=== PATIENT | male | born 1965 | race Caucasian/White ===

== ENCOUNTER → 2018-03-05 08:19 | Outpatient (CLI) | payer OTHER, SELFPAY ==
[2018-03-05 09:13] LABS: Hemoglobin A1C% w Est Avg Glu 6.1 % (4.0-6.0)
[2018-03-05 09:28] LABS: BUN Creatinine Ratio 18.9 (6-22); Blood Urea Nitrogen 17 mg/dL (9-20); Calcium 9.3 mg/dL (8.4-10.2); Carbon Dioxide 29 mmol/L (22-32); Chloride 101 mmol/L (98-107); Cholesterol 170 mg/dL (140-199); Estimated Glomerular Filt Rate > 60.0 mL/min (>60); Glucose 121 mg/dL (70-100); HDL Cholesterol 27 mg/dL (40-60); HEMOLYSIS < 15 (0-50); LDL Cholesterol Calculated 114 mg/dL (<100); Potassium 4.5 mmol/L (3.4-5.1); Sodium 137 mmol/L (137-145); Triglycerides 143 mg/dL (35-150)
== END ==
PROVIDERS: Family Provider Family Medicine; PCP Family Medicine; Visit Provider Family Medicine
DX: E11.9 Type 2 diabetes mellitus without complications (principal)
CPT/HCPCS: 36415; 80048; 80061; 83036

== ENCOUNTER → 2019-07-05 11:05 | Outpatient (CLI) | payer OTHER, SELFPAY ==
--- NOTE | 2019-07-05 11:06 | DI.US.S_ITS ---
PROCEDURE: US PERIPH VENOUS LOW EXTREM RT INDICATIONS: R>L LE EDEMA, ONSET 2 WEEKS TECHNIQUE: Real-time imaging, as well as color and pulse Doppler interrogation, were performed of the lower extremity deep veins from the inguinal ligament to the popliteal fossa. COMPARISON: None. FINDINGS: The common femoral, femoral and popliteal veins are normally compressible, and free of intraluminal thrombus. Color and pulse Doppler demonstrate normal phasic intraluminal flow. There is normal augmentation response to distal compression maneuver. There are enlarged right inguinal lymph nodes including an enlarged node measuring up to 1.3 cm in short axis with a preserved fatty hilum. IMPRESSION: 1. No evidence of deep venous thrombosis in the right lower extremity. 2. Enlarged right inguinal lymph nodes with preserved fatty margarita are nonspecific but likely reactive. Recommend correlation clinically. Dictated by: Van Mullins M.D. on 07/05/2019 at 11:51 Approved by: Van Mullins M.D. on 07/05/2019 at 11:52
== END ==
PROVIDERS: PCP Family Medicine; Visit Provider Family Medicine
DX: R60.0 Localized edema (principal); R59.0 Localized enlarged lymph nodes
CPT/HCPCS: 93971

== ENCOUNTER → 2019-07-08 08:16 | Outpatient (CLI) | payer OTHER, SELFPAY ==
[2019-07-08 09:57] LABS: Alanine Aminotransferase 20 IU/L (<50); Albumin 4.2 g/dL (3.5-5.0); Albumin Globulin Ratio 1.4 (1.0-2.8); Alkaline Phosphatase 55 U/L (38-126); Aspartate Aminotransferase 22 IU/L (17-59); BUN Creatinine Ratio 18.9 (6-22); Bilirubin Total 0.5 mg/dL (0.2-1.3); Blood Urea Nitrogen 17 mg/dL (9-20); Calcium 9.5 mg/dL (8.4-10.2); Carbon Dioxide 30 mmol/L (22-32); Chloride 99 mmol/L (98-107); Cholesterol 159 mg/dL (140-199); Estimated Glomerular Filt Rate > 60.0 mL/min (>60); Globulin 2.9 g/dL (1.7-4.1); Glucose 125 mg/dL (70-100); HDL Cholesterol 22 mg/dL (40-60); HEMOLYSIS < 15 (0-50); Hemoglobin A1C% w Est Avg Glu 7.3 % (4.0-6.0); LDL Cholesterol Calculated 111 mg/dL (<100); Potassium 5.1 mmol/L (3.4-5.1); Sodium 136 mmol/L (137-145); Total Protein 7.1 g/dL (6.3-8.2); Triglycerides 131 mg/dL (35-150)
[2019-07-08 10:59] LABS: Creatinine Urine Random 91.8 mg/dL
[2019-07-08 11:04] LABS: Microalbumi Creatinin Ratio Ur 105.6 ug/mg CR (<30); Microalbumin Urine Random 9.7 mg/dL (0-1.6)
== END ==
PROVIDERS: PCP Family Medicine; Visit Provider Family Medicine
DX: I10 Essential (primary) hypertension (principal); E11.9 Type 2 diabetes mellitus without complications
CPT/HCPCS: 36415; 80053; 80061; 82043; 82570; 83036

== ENCOUNTER 2019-08-31 08:25 | Emergency (ER) | payer OTHER, SELFPAY ==
[2019-08-31 08:45] VITALS: BP 131/73; PULSE 56; RESP 18; TEMP 37.3; O2SAT 98; BMI 32.5
--- NOTE | 2019-08-31 09:21 | ED_ITS ---
HPI - Extremity Problem General Chief complaint: Extremity Problem,Nontraumatic Stated complaint: swollen,red,toe is split, right side Time Seen by Provider: 08/31/19 08:56 Source: patient Mode of arrival: Ambulatory History of Present Illness HPI Narrative: Patient is a 54-year-old diabetic male presenting with right toe infection. States it's been this way for the last 2 weeks however over the last 3 days he developed a blister in the arch of his foot he has had progressive redness and swelling. He has foul smell coming from his foot. MD Complaint: extremity swelling Onset (ago): week(s) (2) Pain Consistency: constant Location: right Related Data Home Medications Medication Instructions Recorded Confirmed metformin See Rx Instructions .ROUTE .COMPLEX 08/31/19 08/31/19 metoprolol tartrate 50 mg PO BID 08/31/19 08/31/19 Previous Rx's Medication Instructions Recorded lisinopril 40 mg tablet 40 mg PO DAILY #90 tab 07/04/19 atorvastatin 20 mg tablet 20 mg PO DAILY #90 tab 08/18/19 Allergies Allergy/AdvReac Type Severity Reaction Status Date / Time No Known Allergies Allergy Uncoded 08/18/19 14:17 Review of Systems Review of Systems ROS Unobtainable: All systems reviewed & are unremarkable except as noted in HPI and below Constitutional Constitutional: Denies chills, Denies fever(s), Denies lethargy and Denies weakness Eyes Eyes: Denies change in vision, Denies eye discharge, Denies irritation and Denies loss of vision Cardiovascular Cardiovascular: Denies dyspnea and Denies dyspnea on exertion Respiratory Respiratory: Denies cough, Denies dyspnea, Denies dyspnea on exertion and Denies wheezing Genitourinary Genitourinary: Denies hematuria, Denies flank pain, Denies urinary incontinence and Denies urinary urgency Musculoskeletal Musculoskeletal: Reports system reviewed and no additional complaints, except as docu Integumentary/Breasts Skin/Breast: Reports as per HPI Neurologic Neurologic: Denies loss of vision and Denies weakness Allergic/Immunologic Allergic/Immunologic: Denies wheezing Patient History Medical History No significant past medical history (Resolved 08/2016) Surgical History No history of previous surgery (Resolved 08/2016) Family History Father Brain cancer Grandmother Heart attack Grandmother Brain cancer Mother No problems noted. Social History marital status: pets and animals: Yes education level: high school occupational status: employed seatbelt use: always helmet use: Yes water heater temp set < 120 deg: No working smoke detector in home: Yes fire extinguisher in home: Yes carbon monox detector in home: No firearms in home: No Smoking Status: Current every day smoker alcohol intake: current during the past year weight has: decreased > 10 lbs well-balanced diet: about half the time daily servings fruits/ve-1 eating out: rarely or never Smoking Status: Current every day smoker Exam Initial Vital Signs Initial Vital Signs: Vital Signs Temperature 99.1 F 08/31/19 08:45 Pulse Rate 56 L 08/31/19 08:45 Respiratory Rate 18 08/31/19 08:45 Blood Pressure 131/73 08/31/19 08:45 Pulse Oximetry 98 08/31/19 08:45 GENERAL: Well-appearing, well-nourished and in no acute distress. HEENT: Head atraumatic,EOMI, pupils reactive, face symmetric CARDIOVASCULAR: Regular rate and rhythm without murmurs, rubs or gallops. RESPIRATORY: Breath sounds equal bilaterally, no wheezes rales or rhonchi. ABDOMEN: Soft, nontender. Normoactive bowel sounds all 4 quadrants. No guarding or rebound. EXTREMITIES: Normal range of motion, no clubbing or edema. Neurovascularly intact. Right foot is warm swollen distal pedal pulse felt NEUROLOGICAL: Alert and oriented x4.Normal gait and speech. Cranial nerves II through XII grossly intact. SKIN: Significant excoriation and maceration of right big toe. Non stage double large blister in arch of foot, significant erythema swelling of foot. Course Orders Ordered: ED Orders 08/31/19 09:30 C-Reactive Protein Quant Stat Complete Blood Count AUTO DIFF Stat Comprehensive Metabolic Panel Stat Erythrocyte Sedimentation Rate Stat Lactate (Lactic Acid) Stat Procalcitonin Stat Wound Culture and Gram Stain Stat 08/31/19 09:50 XR foot RT min 3V Stat Blood Culture Stat Discontinued Medications Piperacillin/Tazobactam/Dextrose (Zosyn) 3.375 gm in 50 mls @ 100 mls/hr IV NOW ONE Stop: 08/31/19 10:43 Last Infusion: 08/31/19 11:00 Dose: 0 mls/hr Documented by: Admin: 08/31/19 10:30 Dose: 100 mls/hr Documented by: BTONER Vancomycin HCl/Dextrose (Vancomycin) 1,500 mg in 300 mls @ 200 mls/hr IV NOW ONE Stop: 08/31/19 11:43 Last Infusion: 08/31/19 12:39 Dose: 0 mls/hr Documented by: Admin: 08/31/19 11:09 Dose: 200 mls/hr Documented by: ARIARRINGTO Consultations Consultation #1: Dr. Jimenes, Orthopedics at [facility] recommends patient be transferred with a potentially do amputation possible concern for necrotizing fasciitis Time: 10:10 Consultation #2: Dr. Pinzon hospitalist have [facility] requests that we speak with Orthopedics prior to transfer Time: 10:30 Consultation #3: Dr. Torrez, orthopedic hand surgeon at [facility] requests the patient be transferred to a larger facility such as [facility] Time: 11:24 Additional Consultation(s): 1140 VAscular PA at [facility], updated on patient's symptoms test results requests that patient be admitted to the hospitalist and they will consult 1155 , hospitalist updated on patient's symptoms test results agrees with admission with vascular to consult. Vital Signs Vital signs: Vital Signs - 8 hr 08/31/19 11:00 08/31/19 12:00 08/31/19 13:00 Pulse Rate 65 69 71 Respiratory Rate Blood Pressure [Right Arm] 122/70 130/68 140/72 Pulse Oximetry 99 100 98 08/31/19 14:09 Pulse Rate 75 Respiratory Rate 18 Blood Pressure [Right Arm] 150/73 H Pulse Oximetry 98 MDM - Extremity (Nontraumatic) Lab Data Result diagrams: 08/31/19 09:30 08/31/19 09:30 Labs: Lab Results 08/31/19 08/31/19 08/31/19 Range/Units 09:30 09:30 09:30 WBC 19.1 H (4.5-11.0) X10^3/uL RBC 4.37 L (4.5-5.9) X10^6/uL Hgb 12.5 L (13.5-17.5) g/dL Hct 36.3 L (41-53) % MCV 83.1 (80-100) fL MCH 28.7 (26-34) PG MCHC 34.5 (30-36) % RDW 13.9 (11.6-14.8) % Plt Count 272 (150-400) X10^3/uL Neut % (Auto) 87.1 H (50-75) % Lymph % (Auto) 4.1 L (25-40) % [place] % (Auto) 8.2 (3-14) % Eos % (Auto) 0.2 L (2-4) % Baso % (Auto) 0.4 (0-2) % Neut # (Auto) 27355 H (8445-4092) /uL Lymph # (Auto) 800 L (7267-5280) /uL [place] # (Auto) 1600 H (0-900) /uL Eos # (Auto) 0 (0-450) /uL Baso # (Auto) 100 (0-100) /uL ESR 89 H (0-15) MM/HR Sodium 130 L (137-145) mmol/L Potassium 4.6 (3.4-5.1) mmol/L Chloride 95 L (98-107) mmol/L Carbon Dioxide 26 (22-32) mmol/L BUN 16 (9-20) mg/dL Creatinine 1.00 (0.66-1.25) mg/dL Estimated GFR > 60.0 (>60) mL/min BUN/Creatinine Ratio 16.0 (6-22) Glucose 148 H (70-100) mg/dL Lactate (0.7-2.1) mmol/L Calcium 9.0 (8.4-10.2) mg/dL Total Bilirubin 0.5 (0.2-1.3) mg/dL AST 30 (17-59) IU/L ALT 28 (<50) IU/L Alkaline Phosphatase 85 (38-126) U/L C-Reactive Protein 27.8 H (<1.0) mg/dL Total Protein 7.0 (6.3-8.2) g/dL Albumin 3.5 (3.5-5.0) g/dL Globulin 3.5 (1.7-4.1) g/dL Albumin/Globulin Ratio 1.0 (1.0-2.8) Procalcitonin 1.01 H (<0.5) ng/mL 08/31/19 Range/Units 09:30 WBC (4.5-11.0) X10^3/uL RBC (4.5-5.9) X10^6/uL Hgb (13.5-17.5) g/dL Hct (41-53) % MCV (80-100) fL MCH (26-34) PG MCHC (30-36) % RDW (11.6-14.8) % Plt Count (150-400) X10^3/uL Neut % (Auto) (50-75) % Lymph % (Auto) (25-40) % [place] % (Auto) (3-14) % Eos % (Auto) (2-4) % Baso % (Auto) (0-2) % Neut # (Auto) (1859-2980) /uL Lymph # (Auto) (5070-8360) /uL [place] # (Auto) (0-900) /uL Eos # (Auto) (0-450) /uL Baso # (Auto) (0-100) /uL ESR (0-15) MM/HR Sodium (137-145) mmol/L Potassium (3.4-5.1) mmol/L Chloride (98-107) mmol/L Carbon Dioxide (22-32) mmol/L BUN (9-20) mg/dL Creatinine (0.66-1.25) mg/dL Estimated GFR (>60) mL/min BUN/Creatinine Ratio (6-22) Glucose (70-100) mg/dL Lactate 1.1 (0.7-2.1) mmol/L Calcium (8.4-10.2) mg/dL Total Bilirubin (0.2-1.3) mg/dL AST (17-59) IU/L ALT (<50) IU/L Alkaline Phosphatase (38-126) U/L C-Reactive Protein (<1.0) mg/dL Total Protein (6.3-8.2) g/dL Albumin (3.5-5.0) g/dL Globulin (1.7-4.1) g/dL Albumin/Globulin Ratio (1.0-2.8) Procalcitonin (<0.5) ng/mL Urine Dip Bedside Urine Glucose Negative Bedside Urine Bilirubin - Negative Bedside Urine Ketone - Negative Urine Specific [place] 1.015 Bedside Urine Occult Blood +/- Bedside Urine pH 6.0 Bedside Urine Protein + 30 Bedside Urine Urobilinogen - Negative Bedside Urine Nitrite - Negative Bedside Urine Leukocytes - Negative Esterase Imaging Data Extremity x-ray #1: Radiologist's Impression: PROCEDURE: XR FOOT RT MIN 3V INDICATIONS: infection big toe TECHNIQUE: 3 views of the foot were acquired. COMPARISON: None. FINDINGS: Bones: There is suggestion of bony erosion involving medial and dorsal cortex of first proximal phalanx with fracture versus osteotomy involving mid shaft of first proximal phalanx suggest clinical correlation. No other fractures or dislocations. No other area of bony erosion. No suspicious bony lesions. Soft tissues: Extensive subcutaneous emp. 2 linear metallic densities are seen projecting in the plantar aspect of the third and fourth TMT joints as well as middle cuneiform. hysema along medial aspect of right foot particularly adjacent to first metatarsal bone and medial cuneiform is seen with overlying soft tissue swelling No tibiotalar joint effusion. Achilles tendon appears normal. IMPRESSION: 1. Extensive subcutaneous emphysema along medial aspect of right forefoot and midfoot adjacent to right great toe and first TMT joint, suggestive of extensive cellulitis. Possible radiopaque foreign body in plantar aspect of mid foot as above. 2. Finding is concerning for osteomyelitis along medial aspect of the first proximal phalangeal head and possible adjacent first distal phalangeal base. Likely osteotomy involving mid shaft of first proximal phalanx, suggest clinical correlation. Dictated by: Jarrell Cottrell M.D. on 08/31/2019 at 10:03 [facility] Narrative Medical decision making narrative: The patient has significant extensive infection of the right foot. Questionable a necrotizing fasciitis with extensive subcutaneous air noted on x-ray. Right big toe wound culture is pending long blood cultures pending. He is given Zosyn and vancomycin. He otherwise appears stable and not septic. [place] [id number] with elevated ESR and CRP and procalcitonin. However he is afebrile with normal blood pressure and normal lactic acid. Patient will likely require amputation below the knee he is transfer to [facility] for further management. Critical Care Time Critical Care Time Critical Care Time: Yes Total Critical Care Time: 45 Attestation: The high probability of a clinically significant, sudden or life threatening deterioration of the [cardiovascular] system(s) required my full and direct attention, intervention and personal management. The aggregate critical care time was [45] minutes. This time is in addition to time spent performing reported procedures but includes the following: [x] Data Review and interpretation [x] Patient assessment and monitoring of vital signs [x] Documentation [x] Medication orders and management Discharge Plan Departure Patient Disposition: [facility] Clinical Impression: Cellulitis Qualifiers: Site of cellulitis: extremity Site of cellulitis of extremity: lower extremity Laterality: right Qualified Code(s): L03.115 - Cellulitis of right lower limb Osteomyelitis Qualifiers: Osteomyelitis type: other acute Osteomyelitis location: foot Laterality: right Qualified Code(s): M86.171 - Other acute osteomyelitis, right ankle and foot Discharge Date/Time: 08/31/19 14:30 Prescriptions: No Action atorvastatin 20 mg tablet 20 mg PO DAILY Qty: 90 RF: 2 lisinopril 40 mg tablet 40 mg PO DAILY Qty: 90 RF: 3 metformin 500 mg tablet See Rx Instructions .ROUTE .COMPLEX RF: 0 metoprolol tartrate 50 mg tablet 50 mg PO BID RF: 0 Referrals: Melanie Clarke MD [Primary Care Provider] -
[2019-08-31 09:38] LABS: Add Manual Diff / Slide Review NO; Basophils Absolute Auto 100 /uL (0-100); Basophils Percent Auto 0.4 % (0-2); Eosinophils Absolute Auto 0 /uL (0-450); Eosinophils Percent Auto 0.2 % (2-4); Hematocrit 36.3 % (41-53); Hemoglobin 12.5 g/dL (13.5-17.5); Lymphocytes Absolute Auto 800 /uL (1100-4500); Lymphocytes Percent Auto 4.1 % (25-40); Mean Corpuscular HGB Conc 34.5 % (30-36); Mean Corpuscular Hemoglobin 28.7 PG (26-34); Mean Corpuscular Volume 83.1 fL (80-100); Monocytes Absolute Auto 1600 /uL (0-900); Monocytes Percent Auto 8.2 % (3-14); Neutrophils Absolute Auto 16600 /uL (1500-7000); Neutrophils Percent Auto 87.1 % (50-75); Platelet Count 272 X10^3/uL (150-400); Red Blood Cell Count 4.37 X10^6/uL (4.5-5.9); Red Cell Distribution Width 13.9 % (11.6-14.8); White Blood Cell Count 19.1 X10^3/uL (4.5-11.0)
--- NOTE | 2019-08-31 09:50 | DI.RAD.S_ITS ---
PROCEDURE: XR FOOT RT MIN 3V INDICATIONS: infection big toe TECHNIQUE: 3 views of the foot were acquired. COMPARISON: None. FINDINGS: Bones: There is suggestion of bony erosion involving medial and dorsal cortex of first proximal phalanx with fracture versus osteotomy involving mid shaft of first proximal phalanx suggest clinical correlation. No other fractures or dislocations. No other area of bony erosion. No suspicious bony lesions. Soft tissues: Extensive subcutaneous emp. 2 linear metallic densities are seen projecting in the plantar aspect of the third and fourth TMT joints as well as middle cuneiform. hysema along medial aspect of right foot particularly adjacent to first metatarsal bone and medial cuneiform is seen with overlying soft tissue swelling No tibiotalar joint effusion. Achilles tendon appears normal. IMPRESSION: 1. Extensive subcutaneous emphysema along medial aspect of right forefoot and midfoot adjacent to right great toe and first TMT joint, suggestive of extensive cellulitis. Possible radiopaque foreign body in plantar aspect of mid foot as above. 2. Finding is concerning for osteomyelitis along medial aspect of the first proximal phalangeal head and possible adjacent first distal phalangeal base. Likely osteotomy involving mid shaft of first proximal phalanx, suggest clinical correlation. Dictated by: Jarrell Cottrell M.D. on 08/31/2019 at 10:03 Approved by: Jarrell Cottrell M.D. on 08/31/2019 at 10:12
[2019-08-31 09:52] LABS: Lactate (Lactic Acid) 1.1 mmol/L (0.7-2.1)
[2019-08-31 09:54] LABS: Alanine Aminotransferase 28 IU/L (<50); Albumin 3.5 g/dL (3.5-5.0); Alkaline Phosphatase 85 U/L (38-126); Aspartate Aminotransferase 30 IU/L (17-59); Bilirubin Total 0.5 mg/dL (0.2-1.3); Blood Urea Nitrogen 16 mg/dL (9-20); Carbon Dioxide 26 mmol/L (22-32); Chloride 95 mmol/L (98-107); Estimated Glomerular Filt Rate > 60.0 mL/min (>60); Globulin 3.5 g/dL (1.7-4.1); Glucose 148 mg/dL (70-100); HEMOLYSIS < 15 (0-50); Potassium 4.6 mmol/L (3.4-5.1); Sodium 130 mmol/L (137-145)
[2019-08-31 09:55] LABS: Erythrocyte Sedimentation Rate 89 MM/HR (0-15)
[2019-08-31 10:12] LABS: Procalcitonin 1.01 ng/mL (<0.5)
[2019-08-31] MEDS: PIPERACILLIN-TAZO 3.375 GM/50 ML FROZ.PIGGY IV (10:30)
[2019-08-31 10:36] LABS: C-Reactive Protein Quant 27.8 mg/dL (<1.0)
[2019-08-31 11:00] VITALS: BP 122/70; PULSE 65; O2SAT 99
[2019-08-31] MEDS: VANCOMYCIN 1,500 MG/300 ML FROZ.PIGGY 200 MG IV (11:09)
[2019-08-31 12:00] VITALS: BP 130/68; PULSE 69; O2SAT 100
[2019-08-31 13:00] VITALS: BP 140/72; PULSE 71; O2SAT 98
[2019-08-31 14:09] VITALS: BP 150/73; PULSE 75; RESP 18; O2SAT 98
--- NOTE | 2019-08-31 14:14 | PC.NURSE ---
pt has gangrenous right great toe with maceration of skin tissue and nail is falling off, patient states that he cannot feel toe, there is no capillary refill evident in toe, patient's surrounding tissue of foot and ankle is swollen, tense, reddened and warm, on patient's medial right foot there is a large oval blackened area approximately 8 cm x 10 cm
--- NOTE | 2019-08-31 14:18 | PC.NURSE ---
report to Jan
--- NOTE | 2019-08-31 14:18 | PC.NURSE ---
Report given to SLOAN Montoya on [facility]
== END 2019-08-31 14:30 | disposition short-term general hospital (02) ==
PROVIDERS: Emergency Provider Emergency Medicine; PCP Family Medicine
DX: M86.171 Other acute osteomyelitis, right ankle and foot (principal); L03.115 Cellulitis of right lower limb; E11.8 Type 2 diabetes mellitus with unspecified complications; Z79.84 Long term (current) use of oral hypoglycemic drugs
CPT/HCPCS: 36415; 73630; 80053; 81003; 83605; 84145; 85025; 85651; 86140; 87040; 87070; 87077; 87147; 87186; 87205; 96365; 99284; 99291; J2543

== ENCOUNTER → 2019-11-06 13:28 | Outpatient (CLI) | payer OTHER, SELFPAY ==
--- NOTE | 2019-11-06 15:09 | DIET.PN ---
Diabetes Intake: Initial Assessment Assess: Mr. Barnhart is a 54 YOM referred for type 2 diabetes. He is newly diagnosed in Jul 2019. He was admitted to [place] in Aug for a BKA related to an uncontrollable infection. He is unsure if this was related to high BG or an injury. His was present during assessment and admits to not following healthy dietary habits until diagnosis. He has been monitoring his fasting and evening BG. He is taking metformin BID. He reports recent significant unintentional weight loss during his hospitalization. Labs: Per pt report: A1c: 7.3 Microalb: 9.7 Microalb:Cr: 105.6 TC: 159 LDL: 111 HDL: 22 Tr Meds: Metformin 1000mg BID; Lisinopril; atorvastatin Diet: per 24 hr recall: B: 4 eggs, 1 cup oatmeal, 32 oz milk L: leftovers D: pro, starch, veg Sn: fruit, croatian yogurt; high pro ensure Wt: 223lb Ht: 75in BMI: 27.8 UBW: 270-280lb DX: Altered nutrition related laboratory values related to impaired glucose metabolism, lack of previous exposure to nutrition information as evidenced by pt report, diagnosis of diabetes, previous diet high in refined carbohydrates. Intervention: 1. Completed intake assessment. Discussed barriers to care. 2. Discussed pathophysiology of diabetes. Reviewed A1c and its correlation to blood glucose numbers. Discussed recommended BG ranges. 3. Discussed importance of self-monitoring, how often, and when to check. 4. Reviewed hyper/hypoglycemia and treatment. 5. Reviewed safe disposal of equipment (strip/lancets/insulin needles). 6. Created SMART goals for pt self-care and success. 7. Discussed program curriculum outline and class needs based on individual goals. SMART Goals: 1. Pt would like to control BG through better dietary habits including portion control and healthier snack options. Monitor/Evaluate: Anticipate excellent compliance. Pt will attend full DSME program. Basic Nutrition class scheduled for Nov 19.
== END ==
PROVIDERS: PCP Family Medicine; Referring Provider Family Medicine; Visit Provider Family Medicine
DX: E11.9 Type 2 diabetes mellitus without complications (principal); Z79.84 Long term (current) use of oral hypoglycemic drugs; Z71.3 Dietary counseling and surveillance; Z68.27 Body mass index [BMI] 27.0-27.9, adult
CPT/HCPCS: G0108

== ENCOUNTER → 2019-11-24 16:25 | Outpatient (CLI) | payer OTHER, SELFPAY ==
[2019-11-24 17:11] LABS: Hemoglobin A1C% w Est Avg Glu 5.3 % (4.0-6.0)
== END ==
PROVIDERS: PCP Family Medicine; Referring Provider Family Medicine; Visit Provider Family Medicine
DX: E11.9 Type 2 diabetes mellitus without complications (principal)
CPT/HCPCS: 36415; 83036

== ENCOUNTER → 2020-05-31 11:06 | Outpatient (CLI) | payer OTHER, SELFPAY ==
[2020-05-31 11:59] LABS: Hemoglobin A1C% w Est Avg Glu 5.6 % (4.0-6.0)
[2020-05-31 12:03] LABS: Alanine Aminotransferase 25 IU/L (<50); Albumin 4.2 g/dL (3.5-5.0); Albumin Globulin Ratio 1.5 (1.0-2.8); Alkaline Phosphatase 49 U/L (38-126); Aspartate Aminotransferase 23 IU/L (17-59); BUN Creatinine Ratio 21.9 (6-22); Bilirubin Total 0.5 mg/dL (0.2-1.3); Blood Urea Nitrogen 21 mg/dL (9-20); Calcium 9.3 mg/dL (8.4-10.2); Carbon Dioxide 27 mmol/L (22-32); Chloride 103 mmol/L (98-107); Cholesterol 99 mg/dL (140-199); Estimated Glomerular Filt Rate > 60.0 mL/min (>60); Globulin 2.8 g/dL (1.7-4.1); Glucose 89 mg/dL (70-100); HDL Cholesterol 27 mg/dL (40-60); HEMOLYSIS < 15 (0-50); LDL Cholesterol Calculated 49 mg/dL (<100); Potassium 4.4 mmol/L (3.4-5.1); Sodium 137 mmol/L (137-145); Triglycerides 115 mg/dL (35-150)
[2020-05-31 12:19] LABS: Creatinine Urine Random 54.1 mg/dL
[2020-05-31 12:25] LABS: Microalbumi Creatinin Ratio Ur 36.9 ug/mg CR (<30)
== END ==
PROVIDERS: PCP Family Medicine; Referring Provider Family Medicine; Visit Provider Family Medicine
DX: E11.9 Type 2 diabetes mellitus without complications (principal)
CPT/HCPCS: 36415; 80053; 80061; 82043; 82570; 83036

== ENCOUNTER → 2020-07-29 15:25 | Outpatient (CLI) | payer OTHER, SELFPAY ==
--- NOTE | 2020-07-29 15:26 | DI.US.S_ITS ---
PROCEDURE: US PERIPH VENOUS LOW EXTREM LT INDICATIONS: LEFT LEG SWELLING AND PAIN TECHNIQUE: Real-time imaging, as well as color and pulse Doppler interrogation, were performed of the lower extremity deep veins from the inguinal ligament to the popliteal fossa. COMPARISON: None. FINDINGS: The common femoral, femoral and popliteal veins are normally compressible, and free of intraluminal thrombus. Color and pulse Doppler demonstrate normal phasic intraluminal flow. There is normal augmentation response to distal compression maneuver. Nonspecific subcutaneous edema is seen throughout the left calf in at the dorsum of the foot. IMPRESSION: No sonographic evidence of deep venous thrombosis in the left lower extremity. Dictated by: Vinod Florian M.D. on 07/29/2020 at 16:38 Approved by: Vinod Florian M.D. on 07/29/2020 at 16:38
== END ==
PROVIDERS: PCP Family Medicine; Referring Provider Family Medicine; Visit Provider Family Medicine
DX: M79.89 Other specified soft tissue disorders (principal); M79.605 Pain in left leg
CPT/HCPCS: 93971

== ENCOUNTER → 2020-10-16 12:19 | Outpatient (CLI) | payer OTHER, SELFPAY ==
--- NOTE | 2020-10-16 12:21 | DI.MRI.S_ITS ---
PROCEDURE: MR ANKLE LT WO/W CON INDICATIONS: Ganglion, left ankle and foot TECHNIQUE: Noncontrast sagittal T1 spin echo and T2 fast spin echo with fat saturation, axial proton density fast spin echo and T2 fast spin echo with fat saturation, axial T1 spin echo with fat saturation, coronal T1 spin echo and T2 fast spin echo with fat saturation through the ankle/hindfoot. Post-contrast axial, coronal, and sagittal T1 spin echo with fat saturation through the ankle/hindfoot. COMPARISON: [facility], CR, XR ANKLE 3+ VIEWS LEFT, 09/09/2020, 15:22. FINDINGS: Image quality: Excellent. Bones and joints: No bone marrow contusions or fractures. No hindfoot coalitions. No osteochondral injuries of the talar dome. Mild degenerative changes are seen at the 1st tarsometatarsal joint. A small nonedematous os navicular is seen. Diffuse fatty infiltration of the intrinsic foot musculature is seen that is most likely related to chronic denervation changes. Medial structures: The deep and superficial layers of the deltoid ligament appear intact. The spring ligament components are intact. The posterior tibialis, flexor digitorum longus, and flexor hallucis longus tendons are intact. The posterior tibial neurovascular bundle appears normal within the tarsal tunnel, without extrinsic mass effect. Lateral structures: Mild thickening of the anterior talofibular ligament is most likely related to a remote prior sprain. The calcaneofibular ligament and posterior talofibular ligament are intact. The anterior and posterior tibiofibular ligaments appear intact. The peroneus longus and brevis tendons demonstrate normal location and morphology. The sinus tarsi demonstrates normal fatty signal, without edema, fibrosis, or cyst formation. Anterior structures: There is full-thickness tearing of the anterior tibialis tendon at the level of the talus with approximately 3 cm of proximal tendon retraction, although separation of tendon stumps is difficult to measure accurately. The extensor hallucis longus and extensor digitorum longus tendons appear intact. The dorsal talonavicular ligament appears intact. Posterior and plantar structures: Achilles tendon is intact. There is thickening of the proximal plantar fascia without surrounding edema. A small nonedematous plantar calcaneal spur is seen. An additional small ossification is seen within the proximal plantar fascia. IMPRESSION: 1. Complete tearing of the anterior tibialis tendon at the level of the talus with approximately 3 cm separation of tendon stumps. 2. Moderate chronic plantar fasciitis. 3. Chronic low-grade sprain of the anterior talofibular ligament. 4. Diffuse fatty infiltration of the intrinsic foot musculature is most likely related to chronic denervation changes. Dictated by: Vinod Florian M.D. on 10/16/2020 at 14:04 Approved by: Vinod Florian M.D. on 10/16/2020 at 14:20
== END ==
PROVIDERS: PCP Family Medicine; Referring Provider Podiatrist; Visit Provider Podiatrist
DX: M67.472 Ganglion, left ankle and foot (principal); S93.492A Sprain of other ligament of left ankle, initial encounter; S96.812A Strain of other specified muscles and tendons at ankle and foot level, left foot, initial encounter; M72.2 Plantar fascial fibromatosis
CPT/HCPCS: 73723

== ENCOUNTER → 2020-11-28 17:06 | Outpatient (CLI) | payer OTHER, SELFPAY ==
[2020-11-28 18:09] LABS: Hemoglobin A1C% w Est Avg Glu 5.9 % (4.0-6.0)
== END ==
PROVIDERS: PCP Family Medicine; Referring Provider Family Medicine; Visit Provider Family Medicine
DX: E11.9 Type 2 diabetes mellitus without complications (principal)
CPT/HCPCS: 36415; 83036

== ENCOUNTER → 2021-05-19 14:39 | Outpatient (CLI) | payer OTHER, SELFPAY | PROVIDERS: Family Provider Family Medicine; PCP Family Medicine; Referring Provider Family Medicine; Visit Provider Family Medicine | DX: E11.621 Type 2 diabetes mellitus with foot ulcer (principal); L97.811 Non-pressure chronic ulcer of other part of right lower leg limited to breakdown of skin; Z89.511 Acquired absence of right leg below knee; T87.89 Other complications of amputation stump; E11.622 Type 2 diabetes mellitus with other skin ulcer; L97.812 Non-pressure chronic ulcer of other part of right lower leg with fat layer exposed; R45.5 Hostility; Z79.84 Long term (current) use of oral hypoglycemic drugs; Z91.19 Patient's noncompliance with other medical treatment and regimen | CPT/HCPCS: 11042; 99204; 99213 ==

== ENCOUNTER → 2021-06-07 08:09 | Outpatient (CLI) | payer OTHER, SELFPAY ==
[2021-06-07 09:31] LABS: Hemoglobin A1C% w Est Avg Glu 6.1 % (4.0-6.0)
[2021-06-07 09:34] LABS: Alanine Aminotransferase 32 IU/L (<50); Albumin 4.5 g/dL (3.5-5.0); Albumin Globulin Ratio 1.8 (1.0-2.8); Alkaline Phosphatase 43 U/L (38-126); Aspartate Aminotransferase 28 IU/L (17-59); Bilirubin Total 0.4 mg/dL (0.2-1.3); Blood Urea Nitrogen 25 mg/dL (9-20); Carbon Dioxide 32 mmol/L (22-32); Chloride 101 mmol/L (98-107); Cholesterol 117 mg/dL (140-199); Estimated Glomerular Filt Rate > 60.0 mL/min (>60); Globulin 2.5 g/dL (1.7-4.1); Glucose 139 mg/dL (70-100); HDL Cholesterol 31 mg/dL (40-60); HEMOLYSIS < 15 (0-50); LDL Cholesterol Calculated 44 mg/dL (<100); Potassium 4.7 mmol/L (3.4-5.1); Sodium 139 mmol/L (137-145); Triglycerides 211 mg/dL (35-150)
== END ==
PROVIDERS: Family Provider Family Medicine; PCP Family Medicine; Referring Provider Family Medicine; Visit Provider Family Medicine
DX: E11.9 Type 2 diabetes mellitus without complications (principal)
CPT/HCPCS: 36415; 80053; 80061; 83036; 83735

== ENCOUNTER → 2022-08-22 09:10 | Outpatient (CLI) | payer OTHER, SELFPAY ==
[2022-08-22 10:22] LABS: Add Manual Diff / Slide Review NO; Basophils Absolute Auto 0 /uL (0-100); Basophils Percent Auto 0.7 % (0-2); Eosinophils Absolute Auto 100 /uL (0-450); Eosinophils Percent Auto 2.8 % (2-4); Hematocrit 41.6 % (41-53); Hemoglobin 14.6 g/dL (13.5-17.5); Lymphocytes Absolute Auto 1100 /uL (1100-4500); Lymphocytes Percent Auto 20.5 % (25-40); Mean Corpuscular HGB Conc 35.1 % (30-36); Mean Corpuscular Hemoglobin 30.6 PG (26-34); Mean Corpuscular Volume 87.3 fL (80-100); Monocytes Absolute Auto 500 /uL (0-900); Monocytes Percent Auto 10.2 % (3-14); Neutrophils Absolute Auto 3400 /uL (1500-7000); Neutrophils Percent Auto 65.8 % (50-75); Platelet Count 164 X10^3/uL (150-400); Red Blood Cell Count 4.76 X10^6/uL (4.5-5.9); Red Cell Distribution Width 13.1 % (11.6-14.8); White Blood Cell Count 5.1 X10^3/uL (4.5-11.0)
[2022-08-22 10:38] LABS: Hemoglobin A1C% w Est Avg Glu 6.1 % (4.0-6.0)
[2022-08-22 10:44] LABS: Alanine Aminotransferase 23 IU/L (<50); Albumin 3.8 g/dL (3.5-5.0); Albumin Globulin Ratio 1.5 (1.0-2.8); Alkaline Phosphatase 50 U/L (38-126); Aspartate Aminotransferase 18 IU/L (17-59); BUN Creatinine Ratio 18.5 (6-22); Bilirubin Total 0.3 mg/dL (0.2-1.3); Blood Urea Nitrogen 17 mg/dL (9-20); Carbon Dioxide 27 mmol/L (22-32); Chloride 105 mmol/L (98-107); Cholesterol 101 mg/dL (140-199); Estimated Glomerular Filt Rate > 60 mL/min (>60); Globulin 2.6 g/dL (1.7-4.1); Glucose 111 mg/dL (70-100); HDL Cholesterol 23 mg/dL (40-60); HEMOLYSIS < 15 (0-50); LDL Cholesterol Calculated 48 mg/dL (<100); Potassium 4.3 mmol/L (3.4-5.1); Sodium 139 mmol/L (137-145); Total Protein 6.4 g/dL (6.3-8.2); Triglycerides 151 mg/dL (35-150)
[2022-08-22 11:36] LABS: TSH w/ Reflex to FT4 1.21 uIU/mL (0.47-4.68)
== END ==
PROVIDERS: Family Provider Family Medicine; PCP Family Medicine; Referring Provider Family Medicine; Visit Provider Family Medicine
DX: R53.83 Other fatigue (principal); E11.9 Type 2 diabetes mellitus without complications
CPT/HCPCS: 36415; 80053; 80061; 83036; 84443; 85025

== ENCOUNTER 2023-10-31 16:49 | Emergency (ER) | payer OTHER, SELFPAY ==
[2023-10-31] VITALS (18 sets, daily range): BP systolic 82–130; BP diastolic 46–72; PULSE 49–78; RESP 14–29; TEMP 35.9; O2SAT 90–99; BMI 29.9
[2023-10-31 18:25] LABS: Add Manual Diff / Slide Review NO; Basophils Absolute Auto 100 /uL (0-100); Basophils Percent Auto 0.4 % (0-2); Eosinophils Absolute Auto 100 /uL (0-450); Hematocrit 45.8 % (41-53); Hemoglobin 15.9 g/dL (13.5-17.5); Lymphocytes Absolute Auto 1500 /uL (1100-4500); Lymphocytes Percent Auto 10.1 % (25-40); Mean Corpuscular HGB Conc 34.8 % (30-36); Mean Corpuscular Hemoglobin 30.2 PG (26-34); Mean Corpuscular Volume 86.9 fL (80-100); Monocytes Absolute Auto 800 /uL (0-900); Monocytes Percent Auto 5.3 % (3-14); Neutrophils Absolute Auto 12700 /uL (1500-7000); Neutrophils Percent Auto 83.2 % (50-75); Platelet Count 194 X10^3/uL (150-400); Red Blood Cell Count 5.27 X10^6/uL (4.5-5.9); Red Cell Distribution Width 13.4 % (11.6-14.8); White Blood Cell Count 15.3 X10^3/uL (4.5-11.0)
[2023-10-31 18:26] LABS: Alanine Aminotransferase 28 IU/L (<50); Albumin 4.2 g/dL (3.5-5.0); Albumin Globulin Ratio 1.4 (1.0-2.8); Alkaline Phosphatase 58 U/L (38-126); Aspartate Aminotransferase 25 IU/L (17-59); BUN Creatinine Ratio 18.9 (6-22); Bilirubin Total 0.4 mg/dL (0.2-1.3); Blood Urea Nitrogen 20 mg/dL (9-20); Carbon Dioxide 20 mmol/L (22-32); Chloride 107 mmol/L (98-107); Estimated Glomerular Filt Rate > 60 mL/min (>60); Globulin 3.1 g/dL (1.7-4.1); Glucose 141 mg/dL (70-100); HEMOLYSIS < 15 (0-50); Lipase 125 U/L (23-300); Potassium 3.9 mmol/L (3.4-5.1); Sodium 138 mmol/L (137-145); Total Protein 7.3 g/dL (6.3-8.2)
[2023-10-31] MEDS: ONDANSETRON 4 MG/2 ML INJ IV (18:37)
[2023-10-31] MEDS: SODIUM CHLORIDE 0.9% 1,000 ML 1000 ML IV (18:37)
--- NOTE | 2023-10-31 18:41 | ED_ITS ---
HPI - Abdominal Pain General Chief Complaint: Abdominal Pain Stated Complaint: abd pain lightheaded vomitting diabetic Time Seen by Provider: 10/31/23 18:16 Source: patient Mode of arrival: Wheelchair Limitations: no limitations History of Present Illness HPI narrative: This is a 58-year-old male with history of diabetes type 2, hypertension, dyslipidemia with prior BKA. Patient presents with complaint of abdominal pain that started several hours ago he describes it mostly at his umbilical hernia. Patient states it is improved at this time. He had nausea and vomiting, chills but no fevers. States he had some diarrhea like stools earlier today but more for that was having formed stools. He did not look to see if there was any blood or black. He denies any urinary symptoms. He does not normally get abdominal pain. He states his hernia does not reduce anymore but usually soft and nontender. Patient states no prior abdominal surgeries. He takes metformin, metoprolol, lisinopril and atorvastatin. States only prior surgery was BKA for injury complications with diabetes 2nd to that. Patient states no known drug allergies. Denies tobacco, alcohol or recreational drugs. Dr. Clarek is his primary care. Related Data Previous Rx's Medication Instructions Recorded disabled parking permit #1 ea 10/09/19 mupirocin 2 % topical ointment 1 applic topical TID wound #22 04/28/21 grams Below the knee prosthetic #1 ea 05/29/21 bacitracin 500 unit/gram topical 1 applic topical QID #30 grams 05/29/21 ointment atorvastatin 20 mg tablet 20 mg PO DAILY #90 tabs 06/28/23 lisinopril 40 mg tablet 40 mg PO DAILY #90 tabs 06/28/23 metoprolol tartrate 50 mg tablet 50 mg PO BID #180 tabs 06/28/23 metformin 500 mg tablet,extended See Rx Instructions .Route 10/13/23 release 24 hr .COMPLEX #180 tabs Allergies Allergy/AdvReac Type Severity Reaction Status Date / Time No Known Drug Allergies Allergy Verified 10/31/23 16:53 Review of Systems Review of Systems ROS Unobtainable: All systems reviewed & are unremarkable except as noted in HPI and below Patient History Medical History No significant past medical history (08/2016) Surgical History Hx of right BKA No history of previous surgery (08/2016) Family History Father Brain cancer Grandmother Heart attack Grandmother Brain cancer Mother No problems noted. Social History marital status: pets and animals: Yes education level: high school occupational status: employed seatbelt use: always helmet use: Yes water heater temp set < 120 deg: No working smoke detector in home: Yes fire extinguisher in home: Yes carbon monox detector in home: No firearms in home: No Smoking Status: Former smoker alcohol intake: current during the past year weight has: decreased > 10 lbs well-balanced diet: about half the time daily servings fruits/ve-1 eating out: rarely or never Type(s) of exercise: walking and additional Smoking Status: Former smoker Substance Use Type: does not use Exam Narrative Exam Narrative: GENERAL: Alert and oriented x three, male in mild distress. HEENT: Head normocephalic, atraumatic, EOMI, pupils reactive, face symmetric, moist mucous membranes NECK: Supple, full range of motion CARDIOVASCULAR: Regular rate and rhythm without murmurs, rubs or gallops. RESPIRATORY: Breath sounds equal bilaterally, no wheezes rales or rhonchi. ABDOMEN: Soft, patient has large umbilical fairly reducible, nontender on palpation. No other tenderness throughout examination on the belly. Normoactive bowel sounds all 4 quadrants. No guarding or rebound, rigidity, no mass : No CVA tenderness bilateral EXTREMITIES: Normal range of motion, no clubbing or edema. Neurovascularly intact NEUROLOGICAL: Cranial nerves II through XII grossly intact. Moving all extremities SKIN: Warm, dry, no petechiae, no rashes or lesions. Initial Vital Signs Initial Vital Signs: Vital Signs Temperature 96.7 F L 10/31/23 16:53 Pulse Rate 74 10/31/23 16:53 Respiratory Rate 24 10/31/23 16:53 Blood Pressure 126/60 10/31/23 16:53 Pulse Oximetry 97 10/31/23 16:53 Oxygen Delivery Method Room Air 10/31/23 16:53 Course Orders Ordered: ED Orders 10/31/23 17:20 Complete Blood Count AUTO DIFF Stat Comprehensive Metabolic Panel Stat Lipase Stat 10/31/23 18:28 EKG-12 Lead Stat 10/31/23 18:50 CT abdomen pelvis w con Stat Discontinued Medications Sodium Chloride (Normal Saline 0.9%) 1,000 mls @ 1,000 mls/hr IV BOLUS ONE Stop: 10/31/23 19:15 Last Infusion: 10/31/23 20:00 Dose: Infused Documented By: Admin: 10/31/23 18:37 Dose: 1,000 mls/hr Documented By: TONE Ondansetron HCl (Ondansetron 4 Mg Odt) 4 mg PO NOW PRN PRN Reason: Nausea And Vomiting Ondansetron HCl (Ondansetron 4 Mg/2 Ml Inj) 4 mg IV NOW PRN PRN Reason: Nausea And Vomiting Last Admin: 10/31/23 18:37 Dose: 4 mg Documented By: TONE Ondansetron HCl (Ondansetron 4 Mg Odt Prepack) 1 bottle MISC DIRECTED ONE Stop: 10/31/23 20:29 Last Admin: 10/31/23 20:45 Dose: 1 bottle Documented By: SONAL Vital Signs Vital signs: Vital Signs - 8 hr 10/31/23 16:53 10/31/23 16:58 10/31/23 16:58 Temperature 96.7 F L Pulse Rate 74 78 Respiratory Rate 24 Blood Pressure 126/60 130/72 Pulse Oximetry 97 93 Oxygen Delivery Method Room Air 10/31/23 17:00 10/31/23 17:00 10/31/23 17:20 Temperature Pulse Rate 74 Respiratory Rate Blood Pressure 105/62 94/55 L Pulse Oximetry 96 Oxygen Delivery Method 10/31/23 17:20 10/31/23 17:30 10/31/23 17:40 Temperature Pulse Rate 60 49 L Respiratory Rate 14 Blood Pressure 82/46 L Pulse Oximetry 95 93 Oxygen Delivery Method Room Air Room Air 10/31/23 17:40 10/31/23 17:55 10/31/23 17:55 Temperature Pulse Rate 56 L 62 Respiratory Rate 29 H Blood Pressure 103/61 Pulse Oximetry 90 L 97 Oxygen Delivery Method Room Air Room Air 10/31/23 18:00 10/31/23 18:00 10/31/23 18:20 Temperature Pulse Rate 57 L 71 Respiratory Rate 24 Blood Pressure 96/51 L Pulse Oximetry 97 96 Oxygen Delivery Method 10/31/23 18:30 10/31/23 18:40 10/31/23 18:40 Temperature Pulse Rate 68 66 Respiratory Rate 19 28 H Blood Pressure 104/59 L Pulse Oximetry 97 96 Oxygen Delivery Method Room Air 10/31/23 19:00 10/31/23 19:00 10/31/23 19:17 Temperature Pulse Rate 68 Respiratory Rate 26 H Blood Pressure 117/63 122/67 Pulse Oximetry 97 Oxygen Delivery Method Room Air 10/31/23 19:17 10/31/23 19:20 10/31/23 19:20 Temperature Pulse Rate 74 73 Respiratory Rate 16 18 Blood Pressure 122/65 Pulse Oximetry 99 96 Oxygen Delivery Method 10/31/23 19:30 10/31/23 19:40 10/31/23 19:40 Temperature Pulse Rate 75 73 Respiratory Rate 20 18 Blood Pressure 124/66 Pulse Oximetry 94 94 Oxygen Delivery Method 10/31/23 20:00 10/31/23 20:00 10/31/23 20:20 Temperature Pulse Rate 75 Respiratory Rate 20 Blood Pressure 128/67 125/69 Pulse Oximetry 94 Oxygen Delivery Method 10/31/23 20:20 Temperature Pulse Rate 75 Respiratory Rate 18 Blood Pressure Pulse Oximetry 96 Oxygen Delivery Method Room Air MDM - Abdominal Pain Lab Data 10/31/23 17:20 10/31/23 17:20 Labs: Lab Results 10/31/23 Range/Units 17:20 WBC 15.3 H (4.5-11.0) X10^3/uL RBC 5.27 (4.5-5.9) X10^6/uL Hgb 15.9 (13.5-17.5) g/dL Hct 45.8 (41-53) % MCV 86.9 (80-100) fL MCH 30.2 (26-34) PG MCHC 34.8 (30-36) % RDW 13.4 (11.6-14.8) % Plt Count 194 (150-400) X10^3/uL Neut % (Auto) 83.2 H (50-75) % Lymph % (Auto) 10.1 L (25-40) % [place] % (Auto) 5.3 (3-14) % Eos % (Auto) 1.0 L (2-4) % Baso % (Auto) 0.4 (0-2) % Neut # (Auto) 35877 H (7860-5779) /uL Lymph # (Auto) 1500 (0081-9936) /uL [place] # (Auto) 800 (0-900) /uL Eos # (Auto) 100 (0-450) /uL Baso # (Auto) 100 (0-100) /uL Sodium 138 (137-145) mmol/L Potassium 3.9 (3.4-5.1) mmol/L Chloride 107 (98-107) mmol/L Carbon Dioxide 20 L (22-32) mmol/L BUN 20 (9-20) mg/dL Creatinine 1.06 (0.66-1.25) mg/dL Estimated GFR > 60 (>60) mL/min BUN/Creatinine Ratio 18.9 (6-22) Glucose 141 H (70-100) mg/dL Calcium 9.0 (8.4-10.2) mg/dL Total Bilirubin 0.4 (0.2-1.3) mg/dL AST 25 (17-59) IU/L ALT 28 (<50) IU/L Alkaline Phosphatase 58 (38-126) U/L Total Protein 7.3 (6.3-8.2) g/dL Albumin 4.2 (3.5-5.0) g/dL Globulin 3.1 (1.7-4.1) g/dL Albumin/Globulin Ratio 1.4 (1.0-2.8) Lipase 125 (23-300) U/L Point of care testing: Point of Care Testing Glucose POC [address] scan - abdomen/pelvis: Radiologist's Impression: [address] [address] [address] Scan Report Signed Patient: Shubham Barnhart MR#: [id number] : 1965 Acct:[id number] Age/Sex: 58 / M Date of Service: 10/31/23 Loc: ED Accession Number: [id number] Procedure: CT abdomen pelvis w con Ordering Provider: Keli Aparicio D.O. PROCEDURE: CT ABDOMEN PELVIS W CON INDICATIONS: abd pain @ umbilical hernia, resolved, vomited this am TECHNIQUE: After the administration of intravenous contrast, axial sections acquired from the lung bases to the pubic symphysis. Coronal and sagittal reformats were performed. For radiation dose reduction, the following was used: automated exposure control, adjustment of mA and/or kV according to patient size. COMPARISON: None. FINDINGS: Image quality: Diagnostic Lower chest: Unremarkable lung bases. Coronary calcifications. Liver: Unremarkable Gallbladder and biliary system: Unremarkable, nondilated Pancreas: No ductal dilation Spleen: Borderline enlargement at 14 cm AP dimension Adrenals: No discrete nodule Kidneys: Bosniak 1 and 2 renal lesions are present, for which no dedicated followup is necessary per latest proposed guidelines. No hydronephrosis. Vessels and lymph nodes: The main portal vein is patent. No abdominal aortic aneurysm. Atherosclerotic calcifications. No pathologic lymph nodes by size criteria. Bowel and peritoneum: Nrhn-[id number]-[id number] distention of the stomach. There is mild wall thickening at the distal stomach. The liquid colonic contents. Colonic diverticula. Mostly liquid prominent loops of small bowel without discrete transition point also seen. The appendix appears nondilated. Body wall: Moderate size fat containing umbilical hernia, currently without any bowel. Mildly congested omentum and hernia. Pelvis: Small fat containing inguinal hernias. Bladder is unremarkable. Bones: No acute or suspicious osseous finding. There are degenerative changes. IMPRESSION: Prominent fluid-filled loops of small and large bowel, likely gastroenteritis and colitis. Mildly distended stomach, with wall thickening at the distal stomach also seen. There is no discrete transition point. Consider endoscopy correlation if clinically indicated following treatment. Moderate fat containing umbilical hernia, without any bowel currently. Mildly congested omentum in the hernia. Other findings as above. Dictated by: Andrés Og M.D. on 10/31/2023 at 19:58 Approved by: Andrés Og M.D. on 10/31/2023 at 20:03 ECG Data Attestation: I personally reviewed and interpreted this ECG as follows: Interpretation: Sinus rhythm rate of 71 TX 182 QRS of [address]TC [address] No acute ST elevation or depression noted. MDM Narrative Medical decision making narrative: 58-year-old male presents with abdominal pain at his umbilical hernia patient is nontender he states pain has improved at this time. Vital show low blood pressure but otherwise appropriate vitals, was given a L of fluids. White count of 15 normal hemoglobin and platelets. Leftward shift. Electrolytes such as sodium potassium are appropriate CO2 is 20, creatinine 0.06 with a BUN of 20, glucose 141 and negative LFTs and negative lipase. Urine CT abdomen and pelvis to evaluate for obstructive process versus strangulated hernia or other abdominal process. CT abdomen pelvis shows prominent fluid-filled loops small and large bowel likely gastroenteritis and colitis, wall thickening of the distal stomach no discrete transition point. Moderate fat containing umbilical hernia without any bowel currently, belly congestion omentum in the hernia. Patient states he feels significantly improved. Has not had any vomiting. Discussed with patient plan for watchful waiting. Return precautions discussed. Patient feels comfortable with plan. Discharge Plan Departure Patient Disposition: Home Clinical Impression: Colitis Instructions: DI for Colitis Activity Restrictions/Additional Instructions: Follow-up with your physician for recheck. Your imaging today shows changes consistent with gastroenteritis/colitis. Your hernia does not have any bowel there is no signs of strangulation or entrapment. You may take Tylenol up to a 1000 mg every 6 hours as needed for pain. You may take Zofran 1 tablet every 6 hours as needed for nausea or vomiting Please return for fevers, new or worsening abdominal back or flank pain, persistent vomiting, black or bloody stools, inability to pass bowel movements or gas, lightheadedness or passing out or other new or concerning changes. Prescriptions: No Action (DME) disabled parking permit Qty: 1 0RF Rx Instructions: My patient meets the qualifying condition of unable to walk without assistive device mupirocin 2 % ointment 1 applic topical TID Qty: 22 0RF bacitracin 500 unit/gram ointment 1 applic topical QID Qty: 30 2RF (DME) Below the knee prosthetic Qty: 1 0RF Rx Instructions: Below the knee prosthetic metoprolol tartrate 50 mg tablet 50 mg PO BID Qty: 180 2RF lisinopril 40 mg tablet 40 mg PO DAILY Qty: 90 2RF atorvastatin 20 mg tablet 20 mg PO DAILY Qty: 90 2RF metformin 500 mg tablet extended release 24 hr See Rx Instructions .ROUTE .COMPLEX Qty: 180 1RF Dose Instruction: TAKE 2 TABLETS BY MOUTH DAILY Rx Instructions: TAKE 2 TABLETS BY MOUTH DAILY Referrals: Melanie Clarke MD [Primary Care Provider] - Stand Alone Forms: Patient Portal/API
--- NOTE | 2023-10-31 18:50 | DI.CT.S_ITS ---
PROCEDURE: CT ABDOMEN PELVIS W CON INDICATIONS: abd pain @ umbilical hernia, resolved, vomited this am TECHNIQUE: After the administration of intravenous contrast, axial sections acquired from the lung bases to the pubic symphysis. Coronal and sagittal reformats were performed. For radiation dose reduction, the following was used: automated exposure control, adjustment of mA and/or kV according to patient size. COMPARISON: None. FINDINGS: Image quality: Diagnostic Lower chest: Unremarkable lung bases. Coronary calcifications. Liver: Unremarkable Gallbladder and biliary system: Unremarkable, nondilated Pancreas: No ductal dilation Spleen: Borderline enlargement at 14 cm AP dimension Adrenals: No discrete nodule Kidneys: Bosniak 1 and 2 renal lesions are present, for which no dedicated followup is necessary per latest proposed guidelines. No hydronephrosis. Vessels and lymph nodes: The main portal vein is patent. No abdominal aortic aneurysm. Atherosclerotic calcifications. No pathologic lymph nodes by size criteria. Bowel and peritoneum: Mtkv-ma-nyzanodm distention of the stomach. There is mild wall thickening at the distal stomach. The liquid colonic contents. Colonic diverticula. Mostly liquid prominent loops of small bowel without discrete transition point also seen. The appendix appears nondilated. Body wall: Moderate size fat containing umbilical hernia, currently without any bowel. Mildly congested omentum and hernia. Pelvis: Small fat containing inguinal hernias. Bladder is unremarkable. Bones: No acute or suspicious osseous finding. There are degenerative changes. IMPRESSION: Prominent fluid-filled loops of small and large bowel, likely gastroenteritis and colitis. Mildly distended stomach, with wall thickening at the distal stomach also seen. There is no discrete transition point. Consider endoscopy correlation if clinically indicated following treatment. Moderate fat containing umbilical hernia, without any bowel currently. Mildly congested omentum in the hernia. Other findings as above. Dictated by: Andrés Og M.D. on 10/31/2023 at 19:58 Approved by: Andrés Og M.D. on 10/31/2023 at 20:03
[2023-10-31] MEDS: ONDANSETRON 4 MG ODT PREPACK 1 BOTTLE MISC (20:45)
== END 2023-10-31 20:48 | disposition home or self-care (01) ==
PROVIDERS: Emergency Provider Emergency Medicine; Family Provider Family Medicine; PCP Family Medicine
DX: K52.9 Noninfective gastroenteritis and colitis, unspecified (principal); R11.2 Nausea with vomiting, unspecified; Z79.899 Other long term (current) drug therapy
CPT/HCPCS: 36415; 74177; 80053; 82962; 83690; 85025; 93005; 96361; 96374; 99284; J2405; Q9967

== ENCOUNTER 2024-01-02 07:28 | Emergency (ER) | payer OTHER, SELFPAY ==
[2024-01-02] VITALS (11 sets, daily range): BP systolic 102–130; BP diastolic 60–82; PULSE 47–80; RESP 18; TEMP 36.8; O2SAT 96–98; BMI 29.9
--- NOTE | 2024-01-02 07:50 | ED_ITS ---
HPI - General Adult General Chief complaint: Extremity Problem,Nontraumatic Stated complaint: toe discharge L ft/ swollen/type 2 diabetes Time Seen by Provider: 01/02/24 07:48 Mode of arrival: Ambulatory History of Present Illness HPI narrative: This is a 58-year-old male with history diabetes, dyslipidemia, hypertension, prior right BKA for diabetic complications who presents with complaint infection swelling and discomfort of the 2nd toe on the left foot. Patient noticed changes about 24 hours ago he notes redness swelling some discomfort although he states he has decreased sensation in the foot and some redness tracking up the foot. Patient denies any fevers or chills. No chest pain or shortness of breath, no nausea or vomiting no other GI or urinary symptoms. Does not recall any trauma or injuries or cuts. Patient states no recent antibiotics. He states only medications currently metformin which he takes diabetes for. States only surgeries have been right BKA which he uses a prosthesis. Denies any drug allergies. Former smoker, denies daily alcohol, no recreational drugs. Dr. Clarke is his primary care physician. Related Data Previous Rx's Medication Instructions Recorded disabled parking permit #1 ea 10/09/19 mupirocin 2 % topical ointment 1 applic topical TID wound #22 04/28/21 grams Below the knee prosthetic #1 ea 05/29/21 bacitracin 500 unit/gram topical 1 applic topical QID #30 grams 05/29/21 ointment atorvastatin 20 mg tablet 20 mg PO DAILY #90 tabs 06/28/23 lisinopril 40 mg tablet 40 mg PO DAILY #90 tabs 06/28/23 metoprolol tartrate 50 mg tablet 50 mg PO BID #180 tabs 06/28/23 metformin 500 mg tablet,extended See Rx Instructions .Route 10/13/23 release 24 hr .COMPLEX #180 tabs clindamycin HCl 300 mg capsule 300 mg PO QID #40 caps 01/02/24 Allergies Allergy/AdvReac Type Severity Reaction Status Date / Time No Known Drug Allergies Allergy Verified 11/10/23 15:57 Review of Systems Review of Systems ROS Unobtainable: All systems reviewed & are unremarkable except as noted in HPI and below Patient History Medical History Type 2 diabetes mellitus with peripheral vascular disease Uses prosthesis Essential hypertension (08/21/16) Surgical History Hx of right BKA No history of previous surgery (08/2016) Family History Father Brain cancer Grandmother Heart attack Grandmother Brain cancer Mother No problems noted. Social History marital status: pets and animals: Yes education level: high school occupational status: employed seatbelt use: always helmet use: Yes water heater temp set < 120 deg: No working smoke detector in home: Yes fire extinguisher in home: Yes carbon monox detector in home: No firearms in home: No Smoking Status: Former smoker alcohol intake: current during the past year weight has: decreased > 10 lbs well-balanced diet: about half the time daily servings fruits/ve-1 eating out: rarely or never Type(s) of exercise: walking and additional Smoking Status: Former smoker Substance Use Type: does not use Exam Narrative Exam Narrative: GENERAL: Alert and oriented x three, in mild distress. HEENT: Head normocephalic, atraumatic, EOMI, pupils reactive, face symmetric, moist mucous membranes NECK: Supple, full range of motion CARDIOVASCULAR: Regular rate and rhythm without murmurs, rubs or gallops. RESPIRATORY: Breath sounds equal bilaterally, no wheezes rales or rhonchi. ABDOMEN: Soft, nontender. Normoactive bowel sounds all 4 quadrants. No guarding or rebound, rigidity, no mass : No CVA tenderness EXTREMITIES: Normal range of motion, no clubbing. Neurovascularly intact. Patient has a right BKA, left foot patient's 2nd toe is red swollen nontender to touch. He has onychomycotic nails on all 5 toes. There is some erythema throughout the 2nd toe onto the dorsum of the foot. He otherwise has normal range of motion no other obvious like lacerations or cuts. No obvious drainage or foul odor. NEUROLOGICAL: Cranial nerves II through XII grossly intact. Moving all extremities SKIN: Warm, dry, no petechiae, no rashes or lesions otherwise noted. Initial Vital Signs Initial Vital Signs: Vital Signs Pulse Rate 51 L 01/02/24 07:39 Pulse Oximetry 97 01/02/24 07:39 Course Orders Ordered: Discontinued Medications Ceftriaxone Sodium 2,000 mg/ (Sodium Chloride) 100 mls @ 200 mls/hr IV NOW ONE Stop: 01/02/24 07:51 Last Infusion: 01/02/24 08:47 Dose: Infused Documented By: Admin: 01/02/24 08:21 Dose: 200 mls/hr Documented By: WIN Vancomycin HCl/Dextrose (Vancomycin) 1,500 mg in 300 mls @ 200 mls/hr IV NOW ONE Stop: 01/02/24 09:19 Last Infusion: 01/02/24 10:38 Dose: Infused Documented By: Admin: 01/02/24 08:51 Dose: 200 mls/hr Documented By: WIN Sodium Chloride (Sodium Chloride 0.9% Flush) 10 ml IV PRN PRN PRN Reason: Flush Last Admin: 01/02/24 08:52 Dose: 10 ml Documented By: Admin: 01/02/24 07:51 Dose: 10 ml Documented By: WIN Sodium Chloride (Sodium Chloride 0.9% Flush) 10 ml IV BID AMA Last Admin: 01/02/24 08:21 Dose: 10 ml Documented By: WIN Vital Signs Vital signs: Vital Signs - 8 hr 01/02/24 07:39 01/02/24 07:41 01/02/24 07:58 Temperature 98.2 F Pulse Rate 51 L 48 L Pulse Rate [Left Posterior Tibial] 50 L Respiratory Rate 18 Blood Pressure 130/82 Pulse Oximetry 97 97 Oxygen Delivery Method Room Air 01/02/24 08:00 01/02/24 08:19 01/02/24 08:19 Temperature Pulse Rate 47 L 49 L Pulse Rate [Left Posterior Tibial] Respiratory Rate Blood Pressure 107/64 Pulse Oximetry 96 98 Oxygen Delivery Method 01/02/24 08:30 01/02/24 08:30 01/02/24 09:00 Temperature Pulse Rate 47 L 49 L Pulse Rate [Left Posterior Tibial] Respiratory Rate Blood Pressure 102/62 Pulse Oximetry 97 96 Oxygen Delivery Method 01/02/24 09:00 01/02/24 09:30 01/02/24 09:31 Temperature Pulse Rate 54 L 51 L Pulse Rate [Left Posterior Tibial] Respiratory Rate Blood Pressure 108/66 Pulse Oximetry 97 97 Oxygen Delivery Method 01/02/24 09:31 01/02/24 10:00 01/02/24 10:00 Temperature Pulse Rate 48 L Pulse Rate [Left Posterior Tibial] Respiratory Rate Blood Pressure 128/73 110/67 Pulse Oximetry 97 Oxygen Delivery Method Medical Decision Making Lab Data 01/02/24 07:51 01/02/24 07:51 Labs: Lab Results 01/02/24 Range/Units 07:51 WBC 6.6 (4.5-11.0) X10^3/uL RBC 5.00 (4.5-5.9) X10^6/uL Hgb 15.2 (13.5-17.5) g/dL Hct 43.9 (41-53) % MCV 87.8 (80-100) fL MCH 30.4 (26-34) PG MCHC 34.7 (30-36) % RDW 13.2 (11.6-14.8) % Plt Count 166 (150-400) X10^3/uL Neut % (Auto) 71.3 (50-75) % Lymph % (Auto) 15.2 L (25-40) % [place] % (Auto) 10.4 (3-14) % Eos % (Auto) 1.9 L (2-4) % Baso % (Auto) 1.2 (0-2) % Neut # (Auto) 4700 (5182-5707) /uL Lymph # (Auto) 1000 L (7261-7021) /uL [place] # (Auto) 700 (0-900) /uL Eos # (Auto) 100 (0-450) /uL Baso # (Auto) 100 (0-100) /uL ESR 16 H (0-15) MM/HR Sodium 139 (137-145) mmol/L Potassium 4.5 (3.4-5.1) mmol/L Chloride 108 H (98-107) mmol/L Carbon Dioxide 24 (22-32) mmol/L BUN 23 H (9-20) mg/dL Creatinine 0.94 (0.66-1.25) mg/dL Estimated GFR > 60 (>60) mL/min BUN/Creatinine Ratio 24.5 H (6-22) Glucose 139 H (70-100) mg/dL Calcium 9.7 (8.4-10.2) mg/dL Total Bilirubin 0.5 (0.2-1.3) mg/dL AST 25 (17-59) IU/L ALT 28 (<50) IU/L Alkaline Phosphatase 53 (38-126) U/L C-Reactive Protein 1.8 H (<1.0) mg/dL Total Protein 7.5 (6.3-8.2) g/dL Albumin 4.4 (3.5-5.0) g/dL Globulin 3.1 (1.7-4.1) g/dL Albumin/Globulin Ratio 1.4 (1.0-2.8) Procalcitonin 0.07 (<0.5) ng/mL Imaging Data Extremity x-ray #1: Radiologist's Impression: Close Toe X-Ray (Signed) Cody Gaston - 01/02/24 Abdomen/Pelvis CT (Signed) Andrés Og - 10/31/23 Ankle MRI (Signed) Vinod Florian - 10/16/20 Vascular Ultrasound (Signed) Vinod Florian - 07/29/20 Foot X-Ray (Signed) Jarrell Cottrell - 08/31/19 Vascular Ultrasound (Signed) Van Mullins - 07/05/19 [place] [address] XRay Report Signed Patient: Shubham Barnhart MR#: [id number] : 1965 Acct:[id number] Age/Sex: 58 / M Date of Service: 01/02/24 Loc: ED Accession Number: [id number] Procedure: XR toe LT min 2V Ordering Provider: Keli Aparicio D.O. PROCEDURE: XR TOE LT MIN 2V INDICATIONS: infection, osteo vs infection, hx dm TECHNIQUE: 3 views of the left toe(s) acquired. COMPARISON: None. FINDINGS: Bones: Dao erosion can be seen involving the distal aspect of the distal phalanx of the 2nd toe. Focal irregularity can be seen involving the distal aspect of the distal phalanx of the great toe. Generalized degenerative changes are seen. Soft tissues: No suspicious soft tissue densities. IMPRESSION: Dao erosion of the distal aspect of the distal phalanx of the 2nd toe, representing osteomyelitis until proven otherwise. Focal irregularity is also seen involving the distal aspect of the great toe, which may represent additional osteomyelitis. If it would be helpful for clinical management decision making in this patient with this given history, please consider a dedicated forefoot MRI (without and with contrast) for further evaluation (assuming that there is no contraindication). Dictated by: Cody Gaston M.D. on 01/02/2024 at 7:06 Approved by: Cody Gaston M.D. on 01/02/2024 at 7:08 [facility] Narrative Medical decision making narrative: 58-year-old male with history of diabetes with prior BKA for infection in his right leg. Patient presents with what appears to be did potential for osteomyelitis. Patient's vitals heart rates in the 40s patient does take metoprolol daily, otherwise appropriate. Labs CBC is normal ESR is 16, CRP is elevated at 1.8, patient's renal function electrolytes are overall appropriate. Procalcitonin is negative. X-ray shows erosion of the distal aspect of the phalanx 2nd toe representing osteomyelitis until proven otherwise and focal irregularity distal aspect of the great toe which could represent additional osteo. Patient is otherwise well-appearing, nontoxic no signs of sepsis or infection other at the localized area did discuss xray imaging including great toe with Dr. Butler. Spoke with Dr. Butler orthopedic surgery who saw the patient here in the department. They did offer patient admission with amputation versus IV antibiotic versus starting oral antibiotics. Patient elects discharge home to pursue oral antibiotics with plan for follow up this with Dr. Butler. Dr. Butler asks for antibiotic with MRSA coverage. Discussed return precautions with patient he expresses understanding. Feels comfortable with this plan. Discharge Plan Departure Patient Disposition: Home Clinical Impression: Acute osteomyelitis of toe of left foot Instructions: DI for Osteomyelitis Activity Restrictions/Additional Instructions: Follow up with Dr. Butler on for recheck. Call the office Wednesday morning for an appointment time. You can also follow up with Dr. Clarke as needed. Keep toe clean and dry and protected. Take oral antibiotics as prescribed. [facility] [place]. Take your next dose this evening. Please return for fevers, increasing redness or swelling, new pain, new purulent drainage or any other new or concerning changes. Prescriptions: New clindamycin HCl 300 mg capsule 300 mg PO QID Qty: 40 0RF No Action (DME) disabled parking permit Qty: 1 0RF Rx Instructions: My patient meets the qualifying condition of unable to walk without assistive device mupirocin 2 % ointment 1 applic topical TID Qty: 22 0RF bacitracin 500 unit/gram ointment 1 applic topical QID Qty: 30 2RF (DME) Below the knee prosthetic Qty: 1 0RF Rx Instructions: Below the knee prosthetic metoprolol tartrate 50 mg tablet 50 mg PO BID Qty: 180 2RF lisinopril 40 mg tablet 40 mg PO DAILY Qty: 90 2RF atorvastatin 20 mg tablet 20 mg PO DAILY Qty: 90 2RF metformin 500 mg tablet extended release 24 hr See Rx Instructions .ROUTE .COMPLEX Qty: 180 1RF Dose Instruction: TAKE 2 TABLETS BY MOUTH DAILY Rx Instructions: TAKE 2 TABLETS BY MOUTH DAILY Referrals: Melanie Clarke MD [Primary Care Provider] - Moises Butler MD [Physician] - Stand Alone Forms: Patient Portal/API
[2024-01-02] MEDS: SODIUM CHLORIDE 0.9% FLUSH 10 ML IV ×3 (07:51→08:52)
[2024-01-02 08:02] LABS: Add Manual Diff / Slide Review NO; Basophils Absolute Auto 100 /uL (0-100); Basophils Percent Auto 1.2 % (0-2); Eosinophils Absolute Auto 100 /uL (0-450); Eosinophils Percent Auto 1.9 % (2-4); Hematocrit 43.9 % (41-53); Hemoglobin 15.2 g/dL (13.5-17.5); Lymphocytes Absolute Auto 1000 /uL (1100-4500); Lymphocytes Percent Auto 15.2 % (25-40); Mean Corpuscular HGB Conc 34.7 % (30-36); Mean Corpuscular Hemoglobin 30.4 PG (26-34); Mean Corpuscular Volume 87.8 fL (80-100); Monocytes Absolute Auto 700 /uL (0-900); Monocytes Percent Auto 10.4 % (3-14); Neutrophils Absolute Auto 4700 /uL (1500-7000); Neutrophils Percent Auto 71.3 % (50-75); Platelet Count 166 X10^3/uL (150-400); Red Cell Distribution Width 13.2 % (11.6-14.8); White Blood Cell Count 6.6 X10^3/uL (4.5-11.0)
[2024-01-02 08:14] LABS: Alanine Aminotransferase 28 IU/L (<50); Albumin 4.4 g/dL (3.5-5.0); Albumin Globulin Ratio 1.4 (1.0-2.8); Alkaline Phosphatase 53 U/L (38-126); Aspartate Aminotransferase 25 IU/L (17-59); BUN Creatinine Ratio 24.5 (6-22); Bilirubin Total 0.5 mg/dL (0.2-1.3); Blood Urea Nitrogen 23 mg/dL (9-20); C-Reactive Protein Quant 1.8 mg/dL (<1.0); Calcium 9.7 mg/dL (8.4-10.2); Carbon Dioxide 24 mmol/L (22-32); Chloride 108 mmol/L (98-107); Estimated Glomerular Filt Rate > 60 mL/min (>60); Globulin 3.1 g/dL (1.7-4.1); Glucose 139 mg/dL (70-100); HEMOLYSIS 16 (0-50); Potassium 4.5 mmol/L (3.4-5.1); Sodium 139 mmol/L (137-145); Total Protein 7.5 g/dL (6.3-8.2)
[2024-01-02 08:19] LABS: Erythrocyte Sedimentation Rate 16 MM/HR (0-15)
[2024-01-02] MEDS: cefTRIAXone 2,000 MG in SODIUM CHLORIDE 0.9% 100 ML 200 MG IV (08:21)
[2024-01-02 08:29] LABS: Procalcitonin 0.07 ng/mL (<0.5)
[2024-01-02] MEDS: VANCOMYCIN 1,500 MG/300 ML PIGGYBACK 200 MG IV (08:51)
--- NOTE | 2024-01-02 10:22 | PM.HP.1 ---
History of Present Illness History of Present Illness Date Patient Seen: 01/02/24 Chief complaint: toe discharge L ft/ swollen/type 2 diabetes Narrative: Patient evaluated in the emergency department today. He has a 58-year-old male with well-controlled diabetes with a history of a right below-knee amputation secondary to a diabetic foot wound. He noted the onset of a left 2nd toe infection today. His glycemic control has actually been very good recently, as indicated by a hemoglobin A1c below 6 last month. He is nontoxic appearing. 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 [facility] Medical History Type 2 diabetes mellitus with peripheral vascular disease Uses prosthesis Essential hypertension (08/21/16) Surgical History Hx of right BKA No history of previous surgery (08/2016) Family History Father Brain cancer Grandmother Heart attack Grandmother Brain cancer Mother No problems noted. Social History marital status: pets and animals: Yes education level: high school occupational status: employed seatbelt use: always helmet use: Yes water heater temp set < 120 deg: No working smoke detector in home: Yes fire extinguisher in home: Yes carbon monox detector in home: No firearms in home: No Smoking Status: Former smoker alcohol intake: current during the past year weight has: decreased > 10 lbs well-balanced diet: about half the time daily servings fruits/ve-1 eating out: rarely or never Type(s) of exercise: walking and additional Meds Home Medications and Allergies Home Medications Medication Instructions Recorded Confirmed Type disabled parking permit #1 ea 10/09/19 11/10/23 Rx mupirocin 2 % topical ointment 1 applic topical TID wound #22 04/28/21 11/10/23 Rx grams Below the knee prosthetic #1 ea 05/29/21 11/10/23 Rx bacitracin 500 unit/gram topical 1 applic topical QID #30 grams 05/29/21 11/10/23 Rx ointment atorvastatin 20 mg tablet 20 mg PO DAILY #90 tabs 06/28/23 11/10/23 Rx lisinopril 40 mg tablet 40 mg PO DAILY #90 tabs 06/28/23 11/10/23 Rx metoprolol tartrate 50 mg tablet 50 mg PO BID #180 tabs 06/28/23 11/10/23 Rx metformin 500 mg tablet,extended See Rx Instructions .Route 10/13/23 11/10/23 Rx release 24 hr .COMPLEX #180 tabs Allergies Allergy/AdvReac Type Severity Reaction Status Date / Time No Known Drug Allergies Allergy Verified 11/10/23 15:57 Review of Systems Review of Systems ROS: Yes All systems reviewed with the patient and are negative except as otherwise documented Exam Vital Signs (past 8 hours): - 01/02/24 07:39 01/02/24 07:41 01/02/24 07:58 Temperature 98.2 F Pulse Rate 51 L 48 L Pulse Rate [Left Posterior Tibial] 50 L Respiratory Rate 18 Blood Pressure 130/82 Pulse Oximetry 97 97 Oxygen Delivery Method Room Air 01/02/24 08:00 01/02/24 08:19 01/02/24 08:19 Temperature Pulse Rate 47 L 49 L Pulse Rate [Left Posterior Tibial] Respiratory Rate Blood Pressure 107/64 Pulse Oximetry 96 98 Oxygen Delivery Method 01/02/24 08:30 01/02/24 08:30 01/02/24 09:00 Temperature Pulse Rate 47 L 49 L Pulse Rate [Left Posterior Tibial] Respiratory Rate Blood Pressure 102/62 Pulse Oximetry 97 96 Oxygen Delivery Method 01/02/24 09:00 01/02/24 09:30 01/02/24 09:31 Temperature Pulse Rate 54 L 51 L Pulse Rate [Left Posterior Tibial] Respiratory Rate Blood Pressure 108/66 Pulse Oximetry 97 97 Oxygen Delivery Method 01/02/24 09:31 Temperature Pulse Rate Pulse Rate [Left Posterior Tibial] Respiratory Rate Blood Pressure 128/73 Pulse Oximetry Oxygen Delivery Method Oxygen Delivery Method Room Air Narrative Exam Narrative: Left foot examination demonstrates erythema limited to the 2nd toe. It encompasses essentially the entirety of the toe. There is no purulent drainage. There is some desquamation of the skin. There is no involvement of the adjacent toes or the foot. He reports diminished but intact sensation throughout the entire foot. Const General: cooperative Orientation: alert and awake [facility] Head: normal to inspection Ears: hearing grossly normal bilaterally Eyes General: appearance normal, both eyes and all related structures Neck Neck: normal visual inspection Resp Effort & Inspection: normal respiratory effort and able to speak in complete sentences Cardio Pulses: other (peripheral pulses present) Skin Lesions: no lesions Rashes: no rashes Neuro General: patient alert, patient awake and moves all extremities Psych Appearance: grossly normal Objective Imaging Left foot x-ray: My impression: Erosive changes are present in the distal phalanx of the 2nd toe. Similar changes are present in the hallux Labs 01/02/24 07:51 01/02/24 07:51 Labs: Laboratory Results - last 24 hr 01/02/24 07:51 WBC 6.6 RBC 5.00 Hgb 15.2 Hct 43.9 MCV 87.8 MCH 30.4 MCHC 34.7 RDW 13.2 Plt Count 166 Neut % (Auto) 71.3 Lymph % (Auto) 15.2 L [place] % (Auto) 10.4 Eos % (Auto) 1.9 L Baso % (Auto) 1.2 Neut # (Auto) 4700 Lymph # (Auto) 1000 L [place] # (Auto) 700 Eos # (Auto) 100 Baso # (Auto) 100 ESR 16 H Sodium 139 Potassium 4.5 Chloride 108 H Carbon Dioxide 24 BUN 23 H Creatinine 0.94 Estimated GFR > 60 BUN/Creatinine Ratio 24.5 H Glucose 139 H Calcium 9.7 Total Bilirubin 0.5 AST 25 ALT 28 Alkaline Phosphatase 53 C-Reactive Protein 1.8 H Total Protein 7.5 Albumin 4.4 Globulin 3.1 Albumin/Globulin Ratio 1.4 Procalcitonin 0.07 Assessment & Plan Assessment and plan (1) Acute osteomyelitis of toe of left foot: Status: Acute (2) Type 2 diabetes mellitus with peripheral vascular disease: Status: Acute Plan This 58-year-old male patient has a diabetic foot infection of his left 2nd toe distal phalanx. I discussed operative versus nonoperative management in detail with him today. I counseled him that a toe amputation would be a reasonable course of action or we could attempt medical management to attempt to preserve his toe. He has had a prior below-knee amputation in his well familiar with the treatment course involved with diabetic foot infections. He actually has very good glycemic control currently, as evidenced by his hemoglobin A1c, and reports that he just had onset of the symptoms today. He is nontoxic appearing and has only mild elevations in his inflammatory markers. Given the options of immediate operative management versus medical management with outpatient follow up, he has elected to proceed with medical management for the time being. He is going to coordinate follow up with his primary care provider in the near future. He is going to be discharged on oral antibiotics. I will plan to follow up with him this in clinic for a wound check. If he has worsening appearance of the toe I would move forward with an amputation in the outpatient setting
== END 2024-01-02 10:41 | disposition home or self-care (01) ==
PROVIDERS: Emergency Provider Emergency Medicine; Family Provider Family Medicine; PCP Family Medicine
DX: M86.172 Other acute osteomyelitis, left ankle and foot (principal); E11.51 Type 2 diabetes mellitus with diabetic peripheral angiopathy without gangrene
CPT/HCPCS: 36415; 73660; 80053; 84145; 85025; 85651; 86140; 87040; 87070; 87147; 87205; 96365; 96366; 96367; 99284; J0696

== ENCOUNTER → 2024-02-25 16:10 | Outpatient (CLI) | payer OTHER, SELFPAY ==
--- NOTE | 2024-02-25 16:11 | DI.MRI.S_ITS ---
PROCEDURE: MR FOOT LT WO/W CON INDICATIONS: left foot for 2nd toe osteomyelitis TECHNIQUE: Multiphasic, multisequence MRI of the forefoot was performed, before and after intravenous contrast administration. COMPARISON: [facility], CR, XR TOE LT MIN 2V, 01/02/2024, 7:49. FINDINGS: Image quality: Excellent. Bones and joints: Erosion of the tuft of the 2nd distal phalanx is again seen. There is decreased intrinsic T1-weighted signal within the 2nd distal phalanx and adjacent middle phalangeal head. Proximal phalanx is normal in signal intensity. Osseous irregularity is also seen at the 1st distal phalangeal tuft, although no significant loss of intrinsic T1-weighted signal is seen. Magnetic susceptibility artifact with inhomogeneous fat suppression compromises evaluation for postcontrast enhancement in these locations. Osseous structures of the forefoot and midfoot otherwise appear to be intact. Small chronic traction cystic changes or chronic osseous erosions at the lateral 5th metatarsal head. Mild degenerative changes at the 1st metatarsophalangeal joint and in the interphalangeal joints of the toes. Soft tissues: Suspected focal ulceration at the distal 2nd toe, not well evaluated due to adjacent magnetic susceptibility. There is also magnetic susceptibility artifact in the great toe in the region of the nail. Chronic subcutaneous thickening is seen in the subcutaneous tissues plantar to the 5th metatarsal head. There is diffuse severe fatty infiltration of the intrinsic foot musculature. Visualized flexor and extensor tendons appear intact, without tenosynovitis. The distal insertions of the peroneus brevis and longus tendons appear intact. The principal Lisfranc ligament appears intact. No soft tissue ganglion cysts or bursal fluid collections. Sagittal images demonstrate no evidence for plantar plate tears. IMPRESSION: 1. Osseous erosion at the tuft of the 2nd distal phalanx with abnormal signal in the distal phalangeal base and adjacent 2nd middle phalangeal head, suspicious for osteomyelitis. 2. Contour irregularity at the tuft of the 1st distal phalanx without abnormal T1 signal, likely chronic. 3. Diffuse severe fatty infiltration of the intrinsic foot musculature is most likely due to chronic denervation changes. Approved by: Vinod Florian M.D. on 02/28/2024 at 10:57
== END ==
LOC: MRI 16:10
PROVIDERS: Family Provider Family Medicine; PCP Family Medicine; Referring Provider Family Medicine; Visit Provider Family Medicine
DX: M86.9 Osteomyelitis, unspecified (principal)
CPT/HCPCS: 73720; A9579

== ENCOUNTER → 2024-11-15 07:47 | Outpatient (CLI) | payer OTHER, SELFPAY ==
[2024-11-15 08:50] LABS: Hemoglobin A1C% w Est Avg Glu 5.5 % (4.0-6.0)
[2024-11-15 09:05] LABS: Alanine Aminotransferase 32 IU/L (<50); Albumin 4.4 g/dL (3.5-5.0); Albumin Globulin Ratio 1.8 (1.0-2.8); Alkaline Phosphatase 46 U/L (38-126); Aspartate Aminotransferase 33 IU/L (17-59); BUN Creatinine Ratio 22.2 (6-22); Bilirubin Total 0.8 mg/dL (0.2-1.3); Blood Urea Nitrogen 20 mg/dL (9-20); Calcium 9.6 mg/dL (8.4-10.2); Carbon Dioxide 26 mmol/L (22-32); Chloride 98 mmol/L (98-107); Cholesterol 103 mg/dL (140-199); Estimated Glomerular Filt Rate > 60 mL/min (>60); Globulin 2.5 g/dL (1.7-4.1); Glucose 122 mg/dL (80-110); HDL Cholesterol 28 mg/dL (40-60); HEMOLYSIS 32 (0-50); LDL Cholesterol Calculated 51 mg/dL (<100); Potassium 4.6 mmol/L (3.4-5.1); Sodium 134 mmol/L (137-145); Total Protein 6.9 g/dL (6.3-8.2); Triglycerides 122 mg/dL (35-150)
[2024-11-15 10:25] LABS: Creatinine Urine Random 108.96 mg/dL
[2024-11-15 10:29] LABS: Microalbumin Urine Random 4.7 mg/dL (0-1.6)
== END ==
PROVIDERS: Family Provider Family Medicine; PCP Family Medicine; Referring Provider Family Medicine; Visit Provider Family Medicine
DX: E11.9 Type 2 diabetes mellitus without complications (principal); I10 Essential (primary) hypertension
CPT/HCPCS: 36415; 80053; 80061; 82043; 82570; 83036

== ENCOUNTER → 2025-05-30 14:58 | Outpatient (CLI) | payer OTHER, SELFPAY ==
[2025-05-30 16:32] LABS: Hemoglobin A1C% w Est Avg Glu 6.2 % (4.0-6.0)
== END ==
PROVIDERS: Family Provider Family Medicine; PCP Family Medicine; Referring Provider Family Medicine; Visit Provider Family Medicine
DX: E11.51 Type 2 diabetes mellitus with diabetic peripheral angiopathy without gangrene (principal)
CPT/HCPCS: 36415; 83036